=== PATIENT | male | born 1955 | race African-American/Black ===

== ENCOUNTER 2018-08-05 10:16 | Observation (INO) | payer MEDICAID ==
--- NOTE | 2018-08-05 10:34 | ER Document Report ---
ED General - General Chief Complaint: High Blood Pressure Stated Complaint: BLOOD PRESSURE ISSUE Time Seen by Provider: 08/05/18 10:33 Mode of Arrival: Medic Information source: Patient TRAVEL OUTSIDE OF THE [place] IN LAST 30 DAYS: No - Related Data Allergies/Adverse Reactions: No Known Allergies Allergy (Verified 08/05/18 10:46) Past Medical History - General Information source: Patient - Social History Smoking Status: Unknown if Ever Smoked Family History: Reviewed & Not Pertinent Review of Systems - Review of Systems Constitutional: See HPI EENT: No symptoms reported Cardiovascular: No symptoms reported Respiratory: No symptoms reported Gastrointestinal: No symptoms reported Genitourinary: No symptoms reported Male Genitourinary: No symptoms reported Musculoskeletal: No symptoms reported Skin: No symptoms reported Hematologic/Lymphatic: No symptoms reported Neurological/Psychological: No symptoms reported Physical Exam - Vital signs Vitals: Temp Pulse Resp BP Pulse Ox 98.1 F 76 16 207/111 H 98 08/05/18 10:30 08/05/18 10:30 08/05/18 10:30 08/05/18 10:30 08/05/18 10:30 - Notes Notes: PHYSICAL EXAMINATION: GENERAL: Well-appearing, well-nourished and in no acute distress. HEAD: Atraumatic, normocephalic. EYES: Pupils equal round and reactive to light, extraocular movements intact, sclera anicteric, conjunctiva are normal. ENT: Nares patent, oropharynx clear without exudates. Moist mucous membranes. NECK: Normal range of motion, supple without lymphadenopathy LUNGS: Breath sounds clear to auscultation bilaterally and equal. No wheezes rales or rhonchi. HEART: Regular rate and rhythm without murmurs ABDOMEN: Soft, nontender, nondistended abdomen. No guarding, no rebound. No masses appreciated. Musculoskeletal: Normal range of motion, no pitting or edema. No cyanosis. NEUROLOGICAL: Cranial nerves grossly intact. Normal speech, normal gait. Normal sensory, motor exams. PERRLA, EOMI. Full motor and sensory function throughout. Outside Plant Technician + 2 equal bilaterally in BUE. Tongue midline. No pronator drift. No ataxia. Neck with APROM. Raises eyebrows. Strength is 5 out of 5 in bilateral upper and lower extremities equally.Speaks in full sentences. No weakness on one side. Romberg gait steady able to walk straight line. Able to recall 5 objects. PSYCH: Normal mood, normal affect. SKIN: Warm, Dry, normal turgor, no rashes or lesions noted. Course - Re-evaluation Re-evalutation: 08/05/18 11:03 63-year-old man afebrile hypertensive and in no distress presents for hypertensive urgency by primary care provider who his first visit was today due to blood pressure. [facility] not have any records of his visits or recent lab work. Patient is followed by [facility] due to being homeless and moving 10, but he is now living in [place] with his son. inital EKG does show ST segment depression in lead II lead III with ST segment elevation in V2 V3. Dr. Juma Claros, supervising ED physician reviewed EKG at 10:45am. Clinical examination unremarkable. reevaluate EKG to see if there is continued ischemic depression. denies any active chest pain. Patient has never been seen in this ED before, no previous pair EKG to compare EKG 2. Initial troponin negative, CK 305, CBC CMP unremarkable. CT head negative for acute stroke, chest x-ray unremarkable for pneumonia, tension pneumothorax, vascular congestion, etc. she not have any active chest pain sensation pertinent clinical, laboratory and neurological find ings, 7 advised to give nitro, and repeat EKG, noted decrease ischemic depression in lead II. Patient remains chest pain-free. Patient's blood pressure decreased to 150/90 2 doses of nitro 0.4 sublingual. No focal neurological deficit noticed on exam. Consulted with Dr. Muñoz, hospitalist who will admit patient for further evaluation of ischemic changes on EKG with improvement on nitro for likely requiring stress test and echocardiogram. Admit patient to the [facility] under medical service. Patient agreeable to plan of care and agree with plan of care. - Vital Signs Vital signs: Temp Pulse Resp BP Pulse Ox 98.1 F 76 17 174/108 H 98 08/05/18 10:30 08/05/18 10:30 08/05/18 12:18 08/05/18 12:18 08/05/18 12:18 - Laboratory Result Diagrams: 08/05/18 11:36 08/05/18 11:36 Laboratory results interpreted by me: 08/05/18 08/05/18 11:36 11:36 WBC 3.8 L Creatine Kinase 305 H Discharge - Discharge Clinical Impression: Abnormal EKG, Hypertension Condition: Stable Disposition: ADMITTED INPATIENT Admitting Provider: Hospitalist - Dr. Jose Angel Mandujano Unit Admitted: [facility]
[2018-08-05] MEDS ORDERED: ASPIRIN 81 MG TABLET, CHEWABLE PO ONE (10:59)
[2018-08-05] MEDS ORDERED: NITROGLYCERIN 0.4 MG/TAB 25 TAB/BOTTLE SL ONE ×2 (11:05→12:19)
--- NOTE | 2018-08-05 11:25 | RADIOLOGY REPORT (SQ) ---
EXAM DESCRIPTION: CHEST SINGLE VIEW COMPLETED DATE/TIME: 08/05/2018 11:11 am REASON FOR STUDY: hypertension COMPARISON: None. EXAM PARAMETERS: NUMBER OF VIEWS: One view. TECHNIQUE: Single frontal radiographic view of the chest acquired. RADIATION DOSE: NA LIMITATIONS: None. FINDINGS: LUNGS AND PLEURA: No opacities, masses or pneumothorax. No pleural effusion. MEDIASTINUM AND HILAR STRUCTURES: No masses. Contour normal. HEART AND VASCULAR STRUCTURES: Heart normal in size. Normal vasculature. BONES: No acute findings. HARDWARE: None in the chest. OTHER: No other significant finding. IMPRESSION: NO ACUTE RADIOGRAPHIC FINDING IN THE CHEST. TECHNICAL DOCUMENTATION: JOB ID: [id number] [employer]- All Rights Reserved Reading location - IP/workstation name: [email or web address]
--- NOTE | 2018-08-05 11:28 | RADIOLOGY REPORT (SQ) ---
EXAM DESCRIPTION: CT HEAD WITHOUT COMPLETED DATE/TIME: 08/05/2018 11:12 am REASON FOR STUDY: htn urgency, ?hx of brain tumor COMPARISON: None. TECHNIQUE: Axial images acquired through the brain without intravenous contrast. Images reviewed wi th bone, brain and subdural windows. Additional sagittal and coronal reconstructions were generated. Images stored on PACS. All CT scanners at this facility use dose modulation, iterative reconstruction, and/or weight based d osing when appropriate to reduce radiation dose to as low as reasonably achievable (ALARA). [facility]: Dose Right [facility]: CareDose [facility]: Dose Right [facility]: Teradose 4D [facility]: MOBi-LEARN RADIATION DOSE: CT Rad equipment meets quality standard of care and radiation dose reduction techniq ues were employed. CTDIvol: 53.2 mGy. DLP: 1017 mGy-cm. mGy. LIMITATIONS: None. FINDINGS: VENTRICLES: Normal size and contour. CEREBRUM: No masses. No hemorrhage. No midline shift. No evidence for acute infarction. Normal gra y/white matter differentiation. No areas of low density in the white matter. CEREBELLUM: No masses. No hemorrhage. No alteration of density. No evidence for acute infarction. EXTRAAXIAL SPACES: No fluid collections. No masses. Benign calcification along the anterior falx ORBITS AND GLOBE: No intra- or extraconal masses. Normal contour of globe without masses. CALVARIUM: No fracture. PARANASAL SINUSES: Mucoperiosteal thickening along the right maxillary sinus with minimal right maxil arturo sinus mucous membrane thickening/debris. SOFT TISSUES: No mass or hematoma. OTHER: No other significant finding. IMPRESSION: No acute findings. Right maxillary chronic sinusitis. EVIDENCE OF ACUTE STROKE: NO. COMMENT: Quality ID # [id number]: Final reports with documentation of one or more dose reduction techniques (e.g., Automated exposure control, adjustment of the mA and/or kV according to patient size, use of iterative reconstruction technique) TECHNICAL DOCUMENTATION: JOB ID: [id number] [employer]- All Rights Reserved Reading location - IP/workstation name: [email or web address]
[2018-08-05 11:52] LABS: ABSOLUTE EOSINOPHILS # (AUTO) 0.2 10^3/uL (0.0-0.6); ABSOLUTE LYMPHOCYTES (AUTO) 0.9 10^3/uL (0.5-4.7); ABSOLUTE MONOCYTES (AUTO) 0.5 10^3/uL (0.1-1.4); ABSOLUTE NEUT (AUTO) 2.3 10^3/uL (1.7-8.2); BASOPHILS % (AUTO) 0.9 % (0-2); EOSINOPHILS % (AUTO) 4.7 % (0-6); HEMOGLOBIN 15.1 g/dL (13.5-17.0); LYMPHOCYTES % (AUTO) 23.4 % (13-45); MEAN CORPUSCULAR HEMOGLOBIN 30.4 pg (27.0-33.4); MEAN CORPUSCULAR HGB CONC 33.5 g/dL (32.0-36.0); MEAN CORPUSCULAR VOLUME 91 fl (80-97); MONOCYTES % (AUTO) 12.2 % (3-13); PLATELET COUNT 182 10^3/uL (150-450); RED BLOOD COUNT 4.96 10^6/uL (4.35-5.55); SEGMENTED NEUTROPHILS % (AUTO) 58.8 % (42-78); TOTAL CELLS COUNTED % (AUTO) 100 %; WHITE BLOOD COUNT 3.8 10^3/uL (4.0-10.5)
[2018-08-05 12:05] LABS: ALANINE AMINOTRANSFERASE 27 U/L (21-72); ALBUMIN 4.3 g/dL (3.5-5.0); ALKALINE PHOSPHATASE 86 U/L (38-126); ANION GAP 9 (5-19); ASPARTATE AMINO TRANSFERASE 23 U/L (17-59); BILIRUBIN,DIRECT 0.1 mg/dL (0.0-0.4); BILIRUBIN,TOTAL 0.5 mg/dL (0.2-1.3); BLOOD UREA NITROGEN 15 mg/dL (7-20); CALCIUM 9.3 mg/dL (8.4-10.2); CARBON DIOXIDE 26 mmol/L (22-30); CHLORIDE 106 mmol/L (98-107); CREATINE KINASE 305 U/L (55-170); GLUCOSE 87 mg/dL (75-110); POTASSIUM 4.6 mmol/L (3.6-5.0); TOTAL PROTEIN 7.4 g/dL (6.3-8.2)
[2018-08-05 12:18] LABS: CREATINE KINASE MB 3.99 ng/mL (<4.55); NT PRO BNP 375 pg/mL (5-900)
[2018-08-05 12:20] LABS: TROPONIN I < 0.012 ng/mL
[2018-08-05 12:28] LABS: APPEARANCE,URINE CLEAR; BILIRUBIN,URINE NEGATIVE (NEGATIVE); COLOR,URINE YELLOW; GLUCOSE, URINE NEGATIVE (NEGATIVE); KETONES,URINE NEGATIVE (NEGATIVE); LEUKOCYTE ESTERASE,URINE NEGATIVE (NEGATIVE); NITRITE,URINE NEGATIVE (NEGATIVE); PROTEIN,URINE NEGATIVE (NEGATIVE); URINE SPECIFIC GRAVITY 1.013; UROBILINOGEN,URINE NEGATIVE mg/dL (<2.0)
--- NOTE | 2018-08-05 13:18 | EKG REPORT ---
SEVERITY:- ABNORMAL ECG - SINUS RHYTHM PROBABLE LEFT ATRIAL ABNORMALITY RBBB AND LAFB LEFT VENTRICULAR HYPERTROPHY : Confirmed by: Haile Gil MD 05-Aug-2018 13:18:06
--- NOTE | 2018-08-05 13:19 | EKG REPORT ---
SEVERITY:- ABNORMAL ECG - SINUS RHYTHM RIGHT BUNDLE BRANCH BLOCK , LAFB ANTERIOR Q WAVES, POSSIBLY DUE TO LVH : Confirmed by: Haile Gil MD 05-Aug-2018 13:18:43
[2018-08-05] MEDS ORDERED: METOPROLOL TARTRATE 50 MG TABLET PO SCH (14:30)
[2018-08-05] MEDS ORDERED: LOSARTAN POTASSIUM 50 MG TABLET PO SCH (14:30)
[2018-08-05] MEDS: HEPARIN SOD (PORCINE) 5,000 UNIT/ML 1 ML SYRINGE SUBCUT SCH (14:35)
[2018-08-05 15:54] LABS: CREATINE KINASE MB 3.51 ng/mL (<4.55)
[2018-08-05 15:59] LABS: TROPONIN I < 0.012 ng/mL
[2018-08-05] MEDS ORDERED: HYDRALAZINE HCL INJ/PF 20 MG/1 ML SDV IV PRN (16:19)
--- NOTE | 2018-08-05 16:19 | PDOC H&P ---
History of Present Illness Patient complains of: elevated blood pressure History of Present Illness: KAE IZAGUIRRE SR is a 63 year old male with a PMH of hypertension, CAD with prior stenting, PVD with prior bilateral fem-pop bypass, asthma, COPD, not on home O2, and alcohol abuse who was sent from [facility] due to elevated blood pressure. Patient says he has not been taking any medication because his son does not bring him to his medical appointments and have not been getting him refills. He does verbalize "they are only after my money". He says it has been more than a year that he has seen a physician. A social services analyst has been involved in his case and arranged fro him to see a PCP at [facility] today. At the clinic, he was noted to have a BP of 201/111 and he was sent to the ER. He denies chest pain or SOB. No headache or dizziness. In the ER, EKG showed mild ST elevation on V1-V2. No prior EKG on record to compare changes. Past Medical History Cardiac Medical History: Reports: Hyperlipidema, Hypertension Social History Smoking Status: Unknown if Ever Smoked Family History Family History: Reviewed & Not Pertinent Parental Family History Reviewed: Yes - dad-NM at 74 Children Family History Reviewed: No Sibling(s) Family History Reviewed.: No Medication/Allergy Home Medications: Amlodipine Besylate [Norvasc 10 mg Tablet] 10 mg PO DAILY #30 tablet 08/06/18 Aspirin [Aspirin 81 mg Chewable Tablet] 81 mg PO DAILY #60 tab.chew 08/06/18 Atorvastatin Calcium [Lipitor 40 mg Tablet] 40 mg PO QHS #30 tablet 08/06/18 Fluticasone/Salmeterol [Advair 100-50 Diskus 14 Dose/Diskus] 1 inh IH Q12 #1 inhaler 08/06/18 Hydralazine HCl [Apresoline 25 mg Tablet] 25 mg PO Q8 #90 tablet 08/06/18 Metoprolol Tartrate [Lopressor 50 mg Tablet] 100 mg PO DAILY #60 tablet 08/06/18 Tiotropium [place] [Spiriva Handihaler 5 Cap/Kit (18 Mcg/Cap)] 1 cap IH DAILY #1 kit 08/06/18 Allergies/Adverse Reactions: No Known Allergies Allergy (Verified 08/05/18 10:46) Review of Systems All systems: reviewed and no additional remarkable complaints except as stated - as mentioned in HPI Physical Exam Vital Signs: Temp Pulse Resp BP Pulse Ox 98.1 F 76 17 174/108 H 98 08/05/18 10:30 08/05/18 10:30 08/05/18 12:18 08/05/18 12:18 08/05/18 12:18 Intake & Output 08/04/18 08/05/18 08/06/18 06:59 06:59 06:59 Weight 193 lb 5.526 oz General appearance: PRESENT: no acute distress, well-developed, well-nourished Head exam: PRESENT: atraumatic, normocephalic Eye exam: PRESENT: conjunctiva pink, EOMI, PERRLA. ABSENT: scleral icterus Ear exam: PRESENT: normal external ear exam Neck exam: ABSENT: carotid bruit, JVD, lymphadenopathy, thyromegaly Respiratory exam: PRESENT: rhonchi, wheezes. ABSENT: rales Cardiovascular exam: PRESENT: RRR. ABSENT: diastolic murmur, rubs, systolic murmur Pulses: PRESENT: normal dorsalis pedis pul GI/Abdominal exam: PRESENT: normal bowel sounds, soft. ABSENT: distended, guarding, mass, organolmegaly, rebound, tenderness Rectal exam: PRESENT: deferred Extremities exam: PRESENT: full ROM. ABSENT: calf tenderness, clubbing, pedal edema Neurological exam: PRESENT: alert, awake, oriented to person, oriented to place, oriented to time, oriented to situation, CN II-XII grossly intact. ABSENT: motor sensory deficit Results Laboratory Results: 08/05/18 11:36 08/05/18 11:36 08/05/18 08/05/18 08/05/18 11:36 11:36 12:11 WBC 3.8 L RBC 4.96 Hgb 15.1 Hct 45.0 MCV 91 MCH 30.4 MCHC 33.5 RDW 14.0 Plt Count 182 Seg Neutrophils % 58.8 Lymphocytes % 23.4 Monocytes % 12.2 Eosinophils % 4.7 Basophils % 0.9 Absolute Neutrophils 2.3 Absolute Lymphocytes 0.9 Absolute Monocytes 0.5 Absolute Eosinophils 0.2 Absolute Basophils 0.0 Sodium 141.0 Potassium 4.6 Chloride 106 Carbon Dioxide 26 Anion Gap 9 BUN 15 Creatinine 0.62 Est GFR ( Amer) > 60 Est GFR (Non-Af Amer) > 60 Glucose 87 Calcium 9.3 Total Bilirubin 0.5 AST 23 ALT 27 Alkaline Phosphatase 86 Total Protein 7.4 Albumin 4.3 Urine Color YELLOW Urine Appearance CLEAR Urine pH 6.0 Ur Specific [place] 1.013 Urine Protein NEGATIVE Urine Glucose (UA) NEGATIVE Urine Ketones NEGATIVE Urine Blood NEGATIVE Urine Nitrite NEGATIVE Ur Leukocyte Esterase NEGATIVE Urine WBC (Auto) 1 Urine RBC (Auto) 0 08/05/18 08/05/18 11:36 11:36 Creatine Kinase 305 H CK-MB (CK-2) 3.99 Troponin I < 0.012 NT-Pro-B Natriuret Pep 375 Impressions: Chest X-Ray 08/05/18 10:35 IMPRESSION: NO ACUTE RADIOGRAPHIC FINDING IN THE CHEST. Head CT 08/05/18 10:36 IMPRESSION: No acute findings. Right maxillary chronic sinusitis. EVIDENCE OF ACUTE STROKE: NO. Assessment & Plan - Diagnosis (1) Hypertensive urgency Is this a current diagnosis for this admission?: Yes Plan: He was given nitro in the ER with improvement in his pressures down to 180/100. He denies chest pain or SOB. EKG findings as mentioned. Troponin is negative. (2) CAD (coronary artery disease) Is this a current diagnosis for this admission?: Yes Plan: Patient is not on any medication due to reasons mentioned above. Will start him on aspirin and statin. (3) COPD (chronic obstructive pulmonary disease) Is this a current diagnosis for this admission?: Yes Plan: He is not on home O2. Breathing treatments as needed. (4) DNR (do not resuscitate) discussion Is this a current diagnosis for this admission?: Yes Plan: Asked about resuscitation and patient verbalized "I don't want any breathing tube". He also verbalized he does not want any chest compression if his heart stops. He says "just let me go I I ". Asked who his surrogate decision maker is and he says he does not have any and asked me if I can be the decision maker. Advised patient it will have to be a family member, relative or friend and he says "I don't have anyone to trust, not even my son who's only after my money". When prompted he needs to have one, he says he will have his younger sister, [employer], be his surrogate decision maker. - Time Time Spent: 30 to 50 Minutes
--- NOTE | 2018-08-05 19:51 | EKG REPORT ---
SEVERITY:- ABNORMAL ECG - SINUS RHYTHM RIGHT BUNDLE BRANCH BLOCK AND LAFB. ANTERIOR INFARCT, AGE INDETERMINATE : Confirmed by: Haile Gil MD 05-Aug-2018 19:50:45
[2018-08-05] MEDS: AMLODIPINE BESYLATE 10 MG TABLET PO SCH (21:32)
[2018-08-05] MEDS ORDERED: ATORVASTATIN CALCIUM 40 MG TABLET PO SCH (22:00)
[2018-08-06] MEDS: HEPARIN SOD (PORCINE) 5,000 UNIT/ML 1 ML SYRINGE SUBCUT SCH ×2 (02:17→14:44)
[2018-08-06] MEDS ORDERED: ASPIRIN 81 MG TABLET, CHEWABLE PO SCH (10:00)
[2018-08-06] MEDS ORDERED: METOPROLOL TARTRATE 50 MG TABLET PO SCH (10:00)
[2018-08-06] MEDS: AMLODIPINE BESYLATE 10 MG TABLET PO SCH (10:17)
[2018-08-06] MEDS: IPRATROPIUM/ALBUTEROL 0.5-2.5 MG/3 ML AMPUL NEB SCH ×3 (10:27→16:29)
[2018-08-06] MEDS ORDERED: HYDRALAZINE HCL 25 MG TABLET PO SCH (11:00)
[2018-08-06] MEDS ORDERED: TIOTROPIUM BROMIDE DPI 5 CAP/KIT (18 MCG/CAP) IH SCH (11:00)
[2018-08-06] MEDS ORDERED: FLUTICASONE/SALMETEROL DISKUS 100-50 MCG/DOSE IH SCH (11:00)
[2018-08-06 15:53] VITALS: BP 137/77
--- NOTE | 2018-08-07 16:22 | PDOC DISCHARGE SUMMARY ---
General - Admit/Disc Date/PCP Admission Date/Primary Care Provider: 08/05/18 14:54 Discharge Date: 08/06/18 - Discharge Diagnosis (1) Hypertensive urgency Is this a current diagnosis for this admission?: Yes (2) CAD (coronary artery disease) Is this a current diagnosis for this admission?: Yes (3) COPD (chronic obstructive pulmonary disease) Is this a current diagnosis for this admission?: Yes (4) DNR (do not resuscitate) discussion Is this a current diagnosis for this admission?: Yes - Additional Information Resuscitation Status: Do Not Resuscitate Prescriptions: Amlodipine Besylate [Norvasc 10 mg Tablet] 10 mg PO DAILY #30 tablet Aspirin [Aspirin 81 mg Chewable Tablet] 81 mg PO DAILY #60 tab.chew Atorvastatin Calcium [Lipitor 40 mg Tablet] 40 mg PO QHS #30 tablet Fluticasone/Salmeterol [Advair 100-50 Diskus 14 Dose/Diskus] 1 inh IH Q12 #1 inhaler Hydralazine HCl [Apresoline 25 mg Tablet] 25 mg PO Q8 #90 tablet Metoprolol Tartrate [Lopressor 50 mg Tablet] 100 mg PO DAILY #60 tablet Tiotropium [place] [Spiriva Handihaler 5 Cap/Kit (18 Mcg/Cap)] 1 cap IH DAILY #1 kit Home Medications: Amlodipine Besylate [Norvasc 10 mg Tablet] 10 mg PO DAILY #30 tablet 08/06/18 Aspirin [Aspirin 81 mg Chewable Tablet] 81 mg PO DAILY #60 tab.chew 08/06/18 Atorvastatin Calcium [Lipitor 40 mg Tablet] 40 mg PO QHS #30 tablet 08/06/18 Fluticasone/Salmeterol [Advair 100-50 Diskus 14 Dose/Diskus] 1 inh IH Q12 #1 inhaler 08/06/18 Hydralazine HCl [Apresoline 25 mg Tablet] 25 mg PO Q8 #90 tablet 08/06/18 Metoprolol Tartrate [Lopressor 50 mg Tablet] 100 mg PO DAILY #60 tablet 08/06/18 Tiotropium [place] [Spiriva Handihaler 5 Cap/Kit (18 Mcg/Cap)] 1 cap IH DAILY #1 kit 08/06/18 History of Present Illness History of Present Illness: KAE Mirza DMITRIY ANDREW is a 63 year old male with a PMH of hypertension, CAD 3 prior stents (1999, 2005), PVD with prior bilateral fem-pop bypass, asthma, COPD, not on home O2, and alcohol abuse who was sent [place] [facility] [place] to elevated blood pressure. Patient says he has not been taking any medication because his son does not bring him to his medical appointments and have not been getting him refills. He does verbalize "they are only after my money". He says it has been more than a year that he has seen a physician. A social media analyst has been involved in his case and arranged fro him to see a PCP at [facility] today. At the clinic, he was noted to have a BP of 201/111 and he was sent to the ER. He denies chest pain or SOB. No headache or dizziness. In the ER, EKG showed ST depressions on the inferolateral leads and mild ST elevation on V1-V2. No prior EKG on record to compare changes. Hospital Course Hospital Course: Patient was admitted for HTN urgency. He has not been taking any medication at all at home due to mentioned social issues. He was started on amlodipine, losartan and lopressor. Records were requested from [facility] and it was noted he developed angioedema from lisinopril. His losartan was switched to PO hydralazine. Discharge planning was also consulted. His BP was optimally controlled with this regimen. He was also restarted on aspirin and statin as well as medications for COPD. Upon review of records from [facility], his ST elevations on the anterior leads are chronic. He will follow up with Dr. Mack for possible outpatient stress testing. Physical Exam Vital Signs: Temp Pulse Resp BP Pulse Ox 98.1 F 69 16 139/85 H 95 08/06/18 11:18 08/06/18 13:53 08/06/18 13:03 08/06/18 11:18 08/06/18 13:03 Intake & Output 08/05/18 08/06/18 08/07/18 06:59 06:59 06:59 Intake Total 908 Output Total 2 Balance 906 Weight 192 lb 14.472 oz General appearance: PRESENT: no acute distress, well-developed, well-nourished Head exam: PRESENT: atraumatic, normocephalic Eye exam: PRESENT: conjunctiva pink, EOMI, PERRLA. ABSENT: scleral icterus Ear exam: PRESENT: normal external ear exam Mouth exam: PRESENT: moist, tongue midline Neck exam: ABSENT: carotid bruit, JVD, lymphadenopathy, thyromegaly Respiratory exam: PRESENT: clear to auscultation samantha. ABSENT: rales, rhonchi, wheezes Cardiovascular exam: PRESENT: RRR. ABSENT: diastolic murmur, rubs, systolic murmur Pulses: PRESENT: normal dorsalis pedis pul GI/Abdominal exam: PRESENT: normal bowel sounds, soft. ABSENT: distended, guarding, mass, organolmegaly, rebound, tenderness Rectal exam: PRESENT: deferred Neurological exam: PRESENT: alert, awake, oriented to person, oriented to place, oriented to time, oriented to situation, CN II-XII grossly intact. ABSENT: motor sensory deficit Results Laboratory Results: 08/05/18 11:36 08/05/18 11:36 08/05/18 08/05/18 08/05/18 11:36 11:36 15:14 Creatine Kinase 305 H 258 H CK-MB (CK-2) 3.99 Troponin I < 0.012 NT-Pro-B Natriuret Pep 375 08/05/18 15:14 Creatine Kinase CK-MB (CK-2) 3.51 Troponin I < 0.012 NT-Pro-B Natriuret Pep Impressions: Chest X-Ray 08/05/18 10:35 IMPRESSION: NO ACUTE RADIOGRAPHIC FINDING IN THE CHEST. Head CT 08/05/18 10:36 IMPRESSION: No acute findings. Right maxillary chronic sinusitis. EVIDENCE OF ACUTE STROKE: NO. Qualifiers - * PATIENT BEING DISCHARGED WITH ANY OF THE FOLLOWING DIAGNOSIS: No
== END 2018-08-06 17:31 | disposition home or self-care (01) ==
LOC: ER 10:16 → EH 14:54 → 3W 19:35
PROVIDERS: ADMIT Internal Medicine; ATTEND Internal Medicine
DX: I16.0 Hypertensive urgency (principal); I25.10 Atherosclerotic heart disease of native coronary artery without angina pectoris; J44.9 Chronic obstructive pulmonary disease, unspecified; F10.11 Alcohol abuse, in remission; Z66 Do not resuscitate; I73.9 Peripheral vascular disease, unspecified; Z79.82 Long term (current) use of aspirin; Z79.899 Other long term (current) drug therapy; Z95.5 Presence of coronary angioplasty implant and graft; Z82.49 Family history of ischemic heart disease and other diseases of the circulatory system; Z63.8 Other specified problems related to primary support group; Z91.14 Patient's other noncompliance with medication regimen; R94.31 Abnormal electrocardiogram [ECG] [EKG]; Z95.820 Peripheral vascular angioplasty status with implants and grafts; Z95.828 Presence of other vascular implants and grafts; Z23 Encounter for immunization
CPT/HCPCS: 93005; 99285; 96374; 36415; 82553; 82550; 85025; 80053; 81001; 84484; 83880; 71045; 70450; 90686; 93010; 94640 ×2; J1644 ×2; J3490 ×7; J0360; J7620; 90471; G0008